=== PATIENT | male | born 1945 | race Two or more races ===

== ENCOUNTER 2022-11-28 14:59 | Inpatient (IN) | payer MEDICARE, OTHER ==
[~2022-11-28] VITALS: Ht 165.1 cm; Wt 54.4 kg
[2022-11-28 15:04] VITALS: O2SAT 96
[2022-11-28] MEDS ORDERED: IV NS 0.9% 500 ML BAG IV ONE (16:30)
[2022-11-28 16:56] LABS: BASOPHILS % (AUTO) 0.1 % (0.0-2.0); EOSINOPHILS # (AUTO) 0.3 K/uL (0.0-0.7); EOSINOPHILS % (AUTO) 2.8 % (0.0-6.0); HEMATOCRIT 46 % (39-51); HEMOGLOBIN 15.3 g/dL (13.5-17.5); LYMPHOCYTES # (AUTO) 2.5 K/uL (0.8-4.8); MEAN CORPUSCULAR HEMOGLOBIN 32 PG (26.0-33.0); MEAN CORPUSCULAR HGB CONC 33 g/dl (31.0-36.0); MEAN CORPUSCULAR VOLUME 95 fL (80-96); MONOCYTES # (AUTO) 0.4 K/uL (0.1-1.30); MONOCYTES % (AUTO) 4.1 % (2.0-12.0); NEUTROPHILS # (AUTO) 6.7 K/uL (1.8-8.9); PLATELET COUNT (AUTO) 182 K/uL (150-450); RED BLOOD CELL COUNT(AUTO) 4.84 MIL/uL (4.5-6.0); RED CELL DISTRIBUTION WIDTH 13.7 % (11.5-15.0); WHITE BLOOD COUNT (AUTO) 9.9 K/uL (4.3-11.0)
[2022-11-28 17:06] LABS: CALCIUM, SERUM 8.6 mg/dL (8.5-10.1); CARBON DIOXIDE 27 mmol/L (21-32); CHLORIDE 106 mmol/L (98-107); CREATININE 0.8 mg/dL (0.6-1.3); GLUCOSE 93 mg/dL (74-106); SODIUM SERUM 137 mmol/L (136-145); UREA NITROGEN, BLOOD 22 mg/dL (7-18)
[2022-11-28 18:24] LABS: APPEARANCE,URINE CLEAR (CLEAR); BILIRUBIN,URINE NEGATIVE (NEGATIVE); BLOOD, URINE NEGATIVE Ery/uL (NEGATIVE); COLOR,URINE YELLOW (YELLOW); KETONES,URINE NEGATIVE (NEGATIVE); LEUKOCYTE ESTERASE ,URINE NEGATIVE (NEGATIVE); NITRITE, URINE NEGATIVE (NEGATIVE); PROTEIN,URINE NEGATIVE (NEGATIVE); UGLUCOSE NEGATIVE (NEGATIVE)
[2022-11-28 18:28] LABS: ADD URINE CULTURE NO; BACTERIA,URINE None seen /HPF (None Seen); RBC,URINE 0-2 /HPF (0-2); SQUAMOUS EPITHELIAL CELL,UR 0-2 /HPF (None Seen); WBC,URINE 0-2 /HPF (0-3)
[2022-11-28 18:29] LABS: MUCUS,URINE Few /LPF (None Seen)
[2022-11-28] MEDS ORDERED: ACETAMINOPHEN 325 MG TABLET PO ONE (20:00)
[2022-11-28] MEDS ORDERED: ACETAMINOPHEN ES 500 MG TABLET ONE (20:07)
[2022-11-28] MEDS ORDERED: ONDANSETRON HCL/PF 4 MG/2 ML VIAL IVP PRN (22:30)
[2022-11-28] MEDS ORDERED: MORPHINE SULFATE INJ 2 MG/ML DISP.SYRIN IV PRN (22:30)
[2022-11-28] MEDS: ENOXAPARIN SODIUM 40 MG/0.4 ML DISP.SYRIN SQ SCH (23:00)
[2022-11-28 23:20] VITALS: BP 150/83; TEMP 97.8; O2SAT 96
[2022-11-28] MEDS: TRAZODONE 50 MG TABLET PO SCH (23:52)
[2022-11-29] MEDS ORDERED: PSEU120T57 PO (00:44)
[2022-11-29] MEDS ORDERED: SENN-261 PO (00:44)
[2022-11-29] MEDS ORDERED: BROM1.7D9 EACHEYE (00:44)
[2022-11-29] MEDS ORDERED: ATOR10TA PO (00:44)
[2022-11-29] MEDS ORDERED: MAGN24002 PO (00:44)
[2022-11-29] MEDS ORDERED: FLUT9.9S16 NS (00:44)
[2022-11-29] MEDS ORDERED: POTA8TAB3 PO (00:44)
[2022-11-29] MEDS ORDERED: LORA-258 PO (00:44)
[2022-11-29] MEDS ORDERED: ACET325C7 PO (00:44)
[2022-11-29] MEDS ORDERED: AMLO10TA4 PO (00:44)
[2022-11-29] MEDS ORDERED: LEVO100T9 PO (00:44)
[2022-11-29] MEDS ORDERED: DIVA500T2 PO (00:44)
[2022-11-29] MEDS ORDERED: BUSP10TA3 PO (00:44)
[2022-11-29] MEDS ORDERED: MIRT7.5T10 PO (00:44)
[2022-11-29] MEDS ORDERED: IPRA12.9 IH (00:44)
[2022-11-29] MEDS ORDERED: PANT20TA2 PO (00:44)
[2022-11-29] MEDS ORDERED: RISP0.5T65 PO (00:44)
[2022-11-29] MEDS ORDERED: BISA10SU61 RC (00:44)
[2022-11-29] MEDS ORDERED: HYDR-3976 PO (00:44)
[2022-11-29] MEDS ORDERED: ACET-868 PO (00:44)
[2022-11-29 07:25] LABS: BASOPHILS % (AUTO) 0.2 % (0.0-2.0); EOSINOPHILS # (AUTO) 0.3 K/uL (0.0-0.7); EOSINOPHILS % (AUTO) 3.2 % (0.0-6.0); HEMATOCRIT 42 % (39-51); LYMPHOCYTES % (AUTO) 21.6 % (20.0-44.0); MEAN CORPUSCULAR HEMOGLOBIN 32 PG (26.0-33.0); MEAN CORPUSCULAR HGB CONC 33 g/dl (31.0-36.0); MEAN CORPUSCULAR VOLUME 95 fL (80-96); MONOCYTES # (AUTO) 0.4 K/uL (0.1-1.30); MONOCYTES % (AUTO) 3.9 % (2.0-12.0); NEUTROPHILS # (AUTO) 6.6 K/uL (1.8-8.9); NEUTROPHILS % (AUTO) 71.1 % (43.0-81.0); PLATELET COUNT (AUTO) 188 K/uL (150-450); RED CELL DISTRIBUTION WIDTH 13.7 % (11.5-15.0); WHITE BLOOD COUNT (AUTO) 9.3 K/uL (4.3-11.0)
[2022-11-29 07:59] LABS: ALBUMIN 2.9 g/dL (3.4-5.0); BILIRUBIN,TOTAL 1.5 mg/dL (0.2-1.0); CREATININE 0.7 mg/dL (0.6-1.3); MAGNESIUM 2.1 mg/dL (1.8-2.4); TOTAL PROTEIN, SERUM 6.2 g/dL (6.4-8.2)
[2022-11-29 08:00] VITALS: BP 137/70; TEMP 98.4; O2SAT 94
[2022-11-29] MEDS ORDERED: HYDR-4209 PO (08:07)
[2022-11-29] MEDS ORDERED: MAGN400O6 PO (08:07)
[2022-11-29] MEDS ORDERED: IPRA42SP (08:07)
[2022-11-29] MEDS ORDERED: HYDR-3972 PO (08:07)
[2022-11-29] MEDS ORDERED: BROM3DRO EACHEYE (08:07)
[2022-11-29] MEDS ORDERED: POLY15DR40 EACHEYE (08:07)
[2022-11-29] MEDS ORDERED: RISP0.2515 PO (08:07)
[2022-11-29] MEDS: ACETAMINOPHEN 325 MG TABLET PO PRN (08:34)
[2022-11-29 16:00] VITALS: BP 128/81; TEMP 99; O2SAT 94
[2022-11-29 19:30] VITALS: BP 109/66; TEMP 97.3; O2SAT 96
[2022-11-29] MEDS: ENOXAPARIN SODIUM 40 MG/0.4 ML DISP.SYRIN SQ SCH (20:37)
[2022-11-29] MEDS: TRAZODONE 50 MG TABLET PO SCH (21:08)
[2022-11-30 08:26] VITALS: BP 150/70; TEMP 98.8; O2SAT 94
[2022-11-30 16:05] VITALS: BP 122/79; TEMP 98.1; O2SAT 96
[2022-11-30] MEDS: ACETAMINOPHEN 325 MG TABLET PO PRN (16:27)
[2022-11-30 20:00] VITALS: BP_SYST 107; TEMP 97.7; O2SAT 95
[2022-11-30] MEDS: TRAZODONE 50 MG TABLET PO SCH (21:58)
[2022-11-30] MEDS: ENOXAPARIN SODIUM 40 MG/0.4 ML DISP.SYRIN SQ SCH (21:59)
[2022-12-01 08:00] VITALS: BP 144/68; TEMP 98.8; O2SAT 96
[2022-12-01 16:00] VITALS: BP 137/75; TEMP 98.2; O2SAT 96
== END 2022-12-01 17:30 | DRG 542 ==
LOC: ER 15:07 → MED 22:37
PROVIDERS: ADMIT Internal Medicine; ATTEND Nurse Practitioner Acute Care
DX: M48.55XA Collapsed vertebra, not elsewhere classified, thoracolumbar region, initial encounter for fracture (principal); R53.2 Functional quadriplegia; G47.00 Insomnia, unspecified; I10 Essential (primary) hypertension; Z20.822 Contact with and (suspected) exposure to COVID-19; N40.0 Benign prostatic hyperplasia without lower urinary tract symptoms; M81.0 Age-related osteoporosis without current pathological fracture; F25.9 Schizoaffective disorder, unspecified; M40.204 Unspecified kyphosis, thoracic region; M85.80 Other specified disorders of bone density and structure, unspecified site
CPT/HCPCS: 36415; 71045-TC; 72128-TC; 80048-TC; 80053-TC; 81001; 83735-TC; 84100-TC; 84484-TC; 85025-TC; 87081-TC; 87086-TC; 97110-TC; 97112-TC; 97530-TC; A4223; G0378; J1650; J7030